=== PATIENT | female | born 1965 | race Caucasian/White ===

== ENCOUNTER → 2017-04-15 | Outpatient (CLI) | payer OTHER ==
[~2017-04-15] MED LIST: ANTIVERT 25MG25 MG PO; ATROVENT I0.2 MG/1 M IH; AVELOX 400MG T400 MG PO; BYSTOLIC5 MG PO; CETIRIZINE; DULERA1 AR1 IH; FLEXERIL 1010 MG/TAB PO; LISINOPRIL5 MG PO; LORTAB 5/500 501 TAB PO; PREDNISONE20 MG PO; PREVACID15 MG PO; PRILOSEC 20MG20 MG PO; PRINIVIL20 MG PO; PROVENTIL0.09 MG/A1 IH; SINGULAIR; TYLENOL 325MG325 MG PO; VALIUM 5MG T5 MG/TAB PO; VENTOLIN0.09 MG IH
== END ==
LOC: COL.RAD 09:28
DX: R16.0 Hepatomegaly, not elsewhere classified (principal); K75.81 Nonalcoholic steatohepatitis (NASH); Z90.49 Acquired absence of other specified parts of digestive tract

== ENCOUNTER → 2017-12-08 | Outpatient (CLI) | payer OTHER ==
[2017-12-08 19:30] LABS: HEMATOCRIT 42.8 % (37.0-47.0); HEMOGLOBIN 14.4 g/dl (12.5-16.0); MEAN CELL VOLUME 96 fl (80.0-100.0); MEAN CORPUSCULAR HEMOGLOBIN 32 pg (27.0-31.0); MEAN CORPUSCULAR HGB CONC 34 g/dl (33.0-37.0); MEAN PLATELET VOLUME 10.3 fl (7.4-10.4); PLATELET COUNT 204 K/mm3 (130-400); RED BLOOD COUNT 4.44 M/mm3 (4.10-5.30); REDCELL DISTRIBUTION WIDTH-CV 12.3 % (11.5-14.5)
[2017-12-08 19:38] LABS: ANION GAP 11 mmol/L (7-16); BLOOD UREA NITROGEN 15 mg/dL (7-17); CARBON DIOXIDE 25 mmol/L (22-30); CHLORIDE 102 mmol/L (98-107); CREATININE, serum 0.75 mg/dL (0.52-1.25); GLUCOSE 94 mg/dL (74-106); POTASSIUM 3.8 mmol/L (3.4-5.0); SODIUM 138 mmol/L (137-145)
[2017-12-08 19:51] LABS: TROPONIN-I < 0.012 ng/mL (0.000-0.034)
== END ==
LOC: COL.LAB 17:36
PROVIDERS: Internal Medicine Interventional Cardiology
DX: R06.02 Shortness of breath (principal); R53.83 Other fatigue

== ENCOUNTER → 2018-06-01 | Outpatient (CLI) | payer OTHER | LOC: COL.RAD 07:28 | DX: R93.2 Abnormal findings on diagnostic imaging of liver and biliary tract (principal); K75.81 Nonalcoholic steatohepatitis (NASH); R19.7 Diarrhea, unspecified ==

== ENCOUNTER → 2018-11-14 | Outpatient (CLI) | payer BC | LOC: MC.RAD 08-15 10:20 | DX: Z12.31 Encounter for screening mammogram for malignant neoplasm of breast (principal) ==

== ENCOUNTER → 2018-12-11 | Outpatient (CLI) | payer BC | LOC: COL.RAD 09:19 | DX: K75.81 Nonalcoholic steatohepatitis (NASH) (principal); R12 Heartburn; Z90.49 Acquired absence of other specified parts of digestive tract ==

== ENCOUNTER → 2019-06-25 | Outpatient (CLI) | payer BC | LOC: COL.RAD 09:20 | DX: R16.0 Hepatomegaly, not elsewhere classified (principal); K75.81 Nonalcoholic steatohepatitis (NASH); R94.5 Abnormal results of liver function studies ==

== ENCOUNTER → 2020-01-28 | Outpatient (CLI) | payer BC | LOC: COL.RAD 11:54 | DX: R05 Cough (principal); R06.02 Shortness of breath ==

== ENCOUNTER → 2021-05-27 | Outpatient (CLI) | payer BC | LOC: MC.RAD 13:44 | DX: Z12.31 Encounter for screening mammogram for malignant neoplasm of breast (principal) ==

== ENCOUNTER 2021-06-05 19:15 | Emergency (ER) | payer BC ==
[~2021-06-05] VITALS: Ht 162.6 cm; Wt 112.3 kg
[2021-06-05 19:44] VITALS: TEMP 98.4
[2021-06-05 21:42] LABS: BASO % 0.2 % (0.0-2.0); EOS # 0.1 (0.0-0.7); EOS % 1.7 % (0-4.0); GRAN # 3.3 (1.4-6.5); GRAN % 52.5 % (42.2-75.2); HEMOGLOBIN 14.3 g/dl (12.5-16.0); LYMPH # 2.3 (1.2-3.4); LYMPH % 36.8 % (20.0-51.0); MEAN CELL VOLUME 94 fl (80.0-100.0); MEAN CORPUSCULAR HEMOGLOBIN 32 pg (27.0-31.0); MEAN CORPUSCULAR HGB CONC 34 g/dl (33.0-37.0); MEAN PLATELET VOLUME 10.4 fl (7.4-10.4); MONO # 0.5 (0.1-0.6); MONO % 8.2 % (1.7-9.3); PLATELET COUNT 157 K/mm3 (130-400); RED BLOOD COUNT 4.48 M/mm3 (4.10-5.30); REDCELL DISTRIBUTION WIDTH-CV 12.3 % (11.5-14.5)
[2021-06-05 21:45] LABS: MUCOUS Present /lpf; PH 5 (5-8); SQUAMOUS EPITHELIAL 0-2 /hpf; URINE APPEARANCE Clear; URINE BACTERIA None Seen /hpf; URINE BILIRUBIN Negative (NEGATIVE); URINE BLOOD Negative (NEGATIVE); URINE COLOR Straw; URINE GLUCOSE Negative (NEGATIVE); URINE KETONE Negative (NEGATIVE); URINE LEUKOCYTE ESTERASE Trace (NEGATIVE); URINE NITRATE Negative (NEGATIVE); URINE PROTEIN(semi-quant) Negative (NEGATIVE); URINE RBC 0-2 /hpf; URINE UROBILINOGEN Negative (NEGATIVE)
[2021-06-05 21:48] LABS: ALANINE AMINOTRANSFERASE 50 U/L (4-34); ALBUMIN 4.3 gm/dL (3.5-5.0); ALKALINE PHOSPHATASE 56 U/L (50-136); ANION GAP 10 mmol/L (7-16); AST,SGOT 40 U/L (15-37); BILIRUBIN,TOTAL 1.7 mg/dL (0.0-1.0); BLOOD UREA NITROGEN 15 mg/dL (7-17); CALCIUM 9.3 mg/dL (8.4-10.2); CARBON DIOXIDE 23 mmol/L (22-30); CHLORIDE 105 mmol/L (98-107); CREATININE, serum 0.75 (0.52-1.25); GLUCOSE 104 mg/dL (74-106); POTASSIUM 3.8 mmol/L (3.4-5.0); SODIUM 138 mmol/L (137-145); TOTAL PROTEIN 7.4 gm/dL (6.4-8.2)
[2021-06-05 21:58] LABS: COLLECTION METHOD CLEAN CATCH
[2021-06-05 22:01] LABS: TROPONIN-I < 0.012 ng/mL (0.000-0.035)
[2021-06-05 23:45] VITALS: BP 128/89; PULSE 78
== END 2021-06-05 23:45 | disposition home or self-care (01) ==
LOC: COL.ER 19:15
PROVIDERS: Emergency Medicine
DX: R07.89 Other chest pain (principal); R10.13 Epigastric pain; R11.0 Nausea; J44.9 Chronic obstructive pulmonary disease, unspecified; E11.9 Type 2 diabetes mellitus without complications; Z79.899 Other long term (current) drug therapy